=== PATIENT | male | born 1980 | race Caucasian/White ===

== ENCOUNTER 2018-05-31 15:15 | Day surgery (SDC) | payer OTHER ==
[~2018-05-31] VITALS: Ht 190.5 cm; Wt 103.2 kg
[2018-05-31] MEDS ORDERED: CEPH-367 PO (16:16)
[2018-05-31] MEDS ORDERED: CELE50CA PO (16:16)
[2018-05-31] MEDS ORDERED: CEPH750C9 PO (16:16)
[2018-05-31 16:17] VITALS: BP 148/91
[2018-05-31] MEDS ORDERED: LACTATED RINGERS 1,000 ML IV SCH ×2 (17:11→19:30)
[2018-05-31] MEDS ORDERED: BACITRACIN 50,000 UNIT ONE (17:18)
[2018-05-31] MEDS ORDERED: MIDAZOLAM 1 MG/ML, 2ML ONE (17:34)
[2018-05-31] MEDS ORDERED: FENTANYL PF 100 MCG/2ML ONE (17:34)
[2018-05-31] MEDS ORDERED: PROPOFOL 10 MG/ML, 20ML ONE (17:35)
[2018-05-31] MEDS ORDERED: CEFAZOLIN 1,000 MG ONE ×2 (17:36)
[2018-05-31] MEDS ORDERED: SODIUM CHLORIDE 0.9% PF 10ML ONE (17:36)
[2018-05-31] MEDS ORDERED: BUPIVACAINE/PF 0.25% ONE (17:43)
[2018-05-31] MEDS ORDERED: BUPIVACAINE/PF 0.5% ONE (17:43)
[2018-05-31] MEDS ORDERED: LIDOCAINE 1%, 20ML ONE (17:43)
[2018-05-31] MEDS ORDERED: EPINEPHRINE 1 MG/ML, 1ML ONE (17:50)
[2018-05-31] MEDS ORDERED: PROMETHAZINE 12.5 MG SUPP PR PRN (18:00)
[2018-05-31] MEDS ORDERED: ONDANSETRON ODT 8 MG PO PRN (18:00)
[2018-05-31] MEDS ORDERED: MORPHINE SULFATE 4 MG/ML, 1ML IVPush PRN (18:00)
[2018-05-31] MEDS ORDERED: FENTANYL PF 100 MCG/2ML IV PRN (18:00)
[2018-05-31] MEDS ORDERED: PROMETHAZINE 25 MG/ML, 1ML IM PRN ×2 (18:00)
[2018-05-31] MEDS ORDERED: PROMETHAZINE 25 MG/ML, 1ML IV PRN (18:00)
[2018-05-31] MEDS ORDERED: OXYcodone 5 MG/5 ML ORAL.SOL UDC PO PRN (18:00)
[2018-05-31] MEDS ORDERED: ONDANSETRON 2MG/ML, 2ML IV PRN ×2 (18:00→19:30)
[2018-05-31] MEDS ORDERED: HYDROmorphone 2 MG/ML, 1ML IVPush PRN (18:00)
[2018-05-31] MEDS ORDERED: MEPERIDINE/PF 25MG/0.5ML IVPush PRN (18:00)
[2018-05-31] MEDS ORDERED: PROMETHAZINE 25 MG SUPP PR PRN (18:00)
[2018-05-31] MEDS ORDERED: OXYcodone 5 MG/5 ML ORAL.SOL UDC ONE (18:22)
[2018-05-31] MEDS ORDERED: HYDROcodone/APAP 5/325 TABLET PO PRN (19:30)
[2018-05-31] MEDS ORDERED: CEPHALEXIN 250 MG CAPSULE PO SCH (21:00)
[2018-05-31] MEDS ORDERED: CELEBREX HOMEMEDPO SCH (21:00)
== END 2018-05-31 20:48 | disposition home or self-care (01) ==
LOC: OR 15:15 → 4NOR 18:50 → OR 20:48
PROVIDERS: ATTEND Orthopaedic Surgery
DX: L03.011 Cellulitis of right finger (principal)
CPT/HCPCS: 11044; 87070; 87075; 87205; J0171; J0690; J2250; J2704; J3010; J3490; J7120; G0378

== ENCOUNTER 2018-07-06 14:49 | Day surgery (SDC) | payer OTHER ==
[~2018-07-06] VITALS: Ht 190.5 cm; Wt 102.2 kg
[~2018-07-06 14:49] MED LIST: CELE50CA PO; CEPH-367 PO; CEPH750C9 PO
[2018-07-06 15:20] VITALS: BP 127/96
[2018-07-06] MEDS ORDERED: LACTATED RINGERS 1,000 ML IV SCH (15:40)
[2018-07-06] MEDS ORDERED: BUPIVACAINE/PF-EPI 0.5% 1:200K ONE (16:24)
[2018-07-06] MEDS ORDERED: FENTANYL PF 100 MCG/2ML ONE ×2 (16:36→17:44)
[2018-07-06] MEDS ORDERED: MIDAZOLAM 1 MG/ML, 2ML ONE (16:36)
[2018-07-06] MEDS ORDERED: CEFAZOLIN 1,000 MG ONE (16:39)
[2018-07-06] MEDS ORDERED: PROPOFOL 50 ML ONE (16:50)
[2018-07-06] MEDS ORDERED: OXYcodone 5 MG/5 ML ORAL.SOL UDC PO PRN (17:30)
[2018-07-06] MEDS ORDERED: ACETAMINOPHEN 325 MG TABLET PO PRN (17:30)
[2018-07-06] MEDS ORDERED: ONDANSETRON ODT 8 MG PO PRN (17:30)
[2018-07-06] MEDS ORDERED: MEPERIDINE/PF 25MG/0.5ML IVPush PRN (17:30)
[2018-07-06] MEDS ORDERED: HYDROmorphone 2 MG/ML, 1ML IVPush PRN (17:30)
[2018-07-06] MEDS ORDERED: LORazepam 2 MG/ML, 1ML IVPush PRN (17:30)
[2018-07-06] MEDS ORDERED: ONDANSETRON 2MG/ML, 2ML IV PRN ×2 (17:30→20:30)
[2018-07-06] MEDS ORDERED: OXYcodone 5 MG/5 ML ORAL.SOL UDC ONE ×2 (17:37→17:39)
[2018-07-06] MEDS: FENTANYL PF 100 MCG/2ML IV PRN ×2 (17:47→17:52)
[2018-07-06 18:24] VITALS: BP 135/88
[2018-07-06] MEDS ORDERED: OXYcodone/APAP 5/325MG TABLET PO PRN (20:30)
== END 2018-07-06 20:00 | disposition home or self-care (01) ==
LOC: OR 14:49 → 4NOR 18:19 → OR 20:00
PROVIDERS: ATTEND Orthopaedic Surgery
DX: T85.79XA Infection and inflammatory reaction due to other internal prosthetic devices, implants and grafts, initial encounter (principal); L60.3 Nail dystrophy; Y83.8 Other surgical procedures as the cause of abnormal reaction of the patient, or of later complication, without mention of misadventure at the time of the procedure; Y92.89 Other specified places as the place of occurrence of the external cause; Z87.891 Personal history of nicotine dependence; Z72.89 Other problems related to lifestyle; Z79.899 Other long term (current) drug therapy
CPT/HCPCS: 11750; 20680; 87015; 87070; 87075; 87102; 87116; 87205; 87206; J0690; J2250; J2704; J3010; J7120; G0378